=== PATIENT | male | born 1990 | race Caucasian/White ===

== ENCOUNTER 2023-02-06 08:08 | Emergency (ER) | payer OTHER, SELFPAY ==
[2023-02-06 08:22] VITALS: BP 123/81; PULSE 87; RESP 16; TEMP 36.7; O2SAT 99
--- NOTE | 2023-02-06 08:31 | ED.MALEGU ---
HPI - Male Genitourinary General Chief complaint: Urogenital-Male Stated complaint: Pain Groin Area Time Seen by Provider: 02/06/23 08:31 Source: patient Mode of arrival: ambulatory Limitations: no limitations History of Present Illness HPI Narrative: 32-year-old male presents with complaint of left testicular pain for 1 week. He also reports for the same amount of time he has had left low back pain radiating into his left lower extremity. He states at times it seems like the left low back radiates into his left lower extremity and then into left groin and left testicle. He denies swelling to left testicle. He states on palpation of his left testicle he does have tenderness. No color change. No warmth. Denies frequency, urgency, dysuria. Denies history of kidney stones. He is unsure at the left back pain and left testicle pain are related. He states left back pain is worse with movement. Afebrile. All systems reviewed and negative except as noted above. Related Data Home Medications Medication Instructions Recorded Confirmed No Home Medications 02/06/23 02/06/23 Allergies Allergy/AdvReac Type Severity Reaction Status Date / Time No Known Allergies Allergy Verified 02/06/23 08:18 Review of Systems Review of Systems: CONSTITUTIONAL: Denies fever, chills, or sweats. EYES: Denies visual changes, redness, or discharge. ENT: Denies rhinorrhea, congestion, sore throat, or otalgia. CARDIOVASCULAR: Denies chest pain, palpitations, or edema. RESPIRATORY: Denies cough or dyspnea. GASTROINTESTINAL: Denies abdominal pain, nausea, vomiting, or diarrhea. GENITOURINARY: Denies dysuria or hematuria. Reports left testicular pain. SKIN: Denies rash or itching. MUSCULOSKELETAL: Reports left-sided low back pain with radiation to left lower extremity.. Deniesjoint pain, or myalgia. NEUROLOGIC: Denies headache, numbness, or weakness. PSYCHIATRIC: Denies anxiety or depression. All other systems reviewed are negative, except as documented in HPI. 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 There is no relevant family history pertinent to the presenting complaint. Exam Narrative: GENERAL: This is a well-nourished, well-developed patient, in no apparent distress. HEAD: normocephalic, atraumatic. EYES: PERRL. Sclera clear/white. Vision is grossly intact. EARS: External ears normal NOSE: External nose normal NECK: Neck supple, non-tender without lymphadenopathy, masses or thyromegaly. CARDIOVASCULAR: Regular rate and rhythm without murmurs, gallops, or rubs. RESPIRATORY: Clear to auscultation. Breath sounds equal bilaterally. No wheezes, rales, or rhonchi. GASTROINTESTINAL: Abdomen soft, non-tender, nondistended. Bowel sounds are active. No hepato-splenomegaly, or palpable masses. No guarding. SKIN: warm, Dry, intact with no suspicious lesions or rash, good texture and turgor. NEURO: awake, alert, and oriented to person, place and time. There were no obvious focal neurologic abnormalities. EXTREMITIES: No joint tenderness, effusion, or edema noted. BACK: Nontender without deformity. No CVA tenderness. Course Course Level of Care
== END 2023-02-06 08:57 | disposition short-term general hospital (02) ==
PROVIDERS: Emergency Provider Nurse Practitioner Family; PCP Family Medicine
DX: N50.812 Left testicular pain (principal); M54.50 Low back pain, unspecified
CPT/HCPCS: 81003; 99212; G0463

== ENCOUNTER 2023-02-06 09:14 | Emergency (ER) | payer OTHER, SELFPAY ==
--- NOTE | ~2023-02-06 | US_ITS ---
EXAMINATION: US scrotum doppler DATE: 02/06/2023 09:54 INDICATION: Left testicular pain. TECHNIQUE: Grayscale and Doppler ultrasound images of the testes were obtained. COMPARISON: None. FINDINGS: The right testis measures 4.5 x 2.8 x 3.3 cm. The left testis measures 4.7 x 2.6 x 3.1 cm. There is normal vascular flow to both testes. The right epididymis is normal with normal vascular demetrius w. The left epididymis demonstrates a 5 mm cyst. There is normal vascular flow in left epididymis. Th ere is no varicocele or hydrocele. IMPRESSION: 1. No specific etiology for the patient's symptoms. Reviewed, dictated and finalized at location A.
[2023-02-06 09:15] VITALS: BP 125/88; PULSE 87; RESP 16; TEMP 36.3; O2SAT 100
[2023-02-06 09:44] LABS: Appearance Urine Clear (Clear); Bilirubin Urine Negative (Negative); Blood Urine Negative (Negative); Color Urine Yellow (Yellow); Glucose Urine UA Negative (Negative); Ketones Urine Negative (Negative); Leukocyte Esterase Ur Negative LEU/UL (Negative); Nitrate Urine Negative (Negative); Protein Urine Negative (Negative); Specific Grav Ur 1.004 (1.001-1.035); Urobilinogen Urine 0.2 mg/dL (<2.0)
--- NOTE | 2023-02-06 09:47 | ED.MALEGU ---
HPI - Male Genitourinary General Chief complaint: Urogenital-Male Stated complaint: groin pain Time Seen by Provider: 02/06/23 09:28 History of Present Illness HPI Narrative: Patient sent here from urgent care with 1 week of feeling of fullness and discomfort to his left testicle, he also has some dull pain to his left lower back/hip, no abdominal pain, dysuria, has never had symptoms like this in the past, he is monogamous with his and has no concerns for STDs. Related Data Home Medications Medication Instructions Recorded Confirmed No Home Medications 02/06/23 02/06/23 Allergies Allergy/AdvReac Type Severity Reaction Status Date / Time No Known Allergies Allergy Verified 02/06/23 09:26 Review of Systems Review of Systems: CONST: No fever. HEENT: No sore throat C/V: No chest pain RESP: No cough GI: No abdominal pain, nausea or vomiting : Left testicular pain and slight swelling M/S: No joint pain. SKIN: No rash. 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 EYES: EOMI, conjunctiva normal ENT: Hearing grossly intact LUNGS: Nonlabored breathing. HEART: [Regular rate and rhythm] ABD: [Soft], [nontender to palpation] BACK: No CVA tenderness : Very minimal swelling/tenderness to left testicle, not high riding, cremasteric reflex intact EXT: Normal range of motion SKIN: [No rashes or lesions.] NEURO: [Alert and oriented x 3. No gross focal sensory or strength deficits.] PSYCH: Normal affect Course Vital Signs Vital signs: Vital Signs Temperature 97.3 F L 02/06/23 09:15 Pulse Rate 87 02/06/23 09:15 Respiratory Rate 16 02/06/23 09:15 Blood Pressure 125/88 02/06/23 09:15 Pulse Oximetry 100 02/06/23 09:15 Temperature 97.3 F L 02/06/23 09:15 Pulse Rate 87 02/06/23 09:15 Respiratory Rate 16 02/06/23 09:15 Blood Pressure 125/88 02/06/23 09:15 Pulse Oximetry 100 02/06/23 09:15 MDM - Male Genitourinary MDM Narrative Medical decision making narrative: 32-year-old male presenting with 1 week of left testicular pain, he also has some mild pain to his left hip/lower back, which is monogamous with his , he does he thinks may have been the way he slept on it. No dysuria or urethritis, reports that they have had difficulty conceiving which is why they have adopted. Urinalysis is within acceptable limits, scrotal ultrasound here shows a small cyst to the left testicle but no obvious cause of his symptoms. Patient agreeable to outpatient follow-up and management with the urologist, I have asked him to return if his back pain does not resolve as we may want to obtain a CT at that point for further evaluation to rule out other diagnoses such as kidney stones, malignancy, however I have very low concern for this without significant pain or any B symptoms and he is otherwise well-appearing without other issues. Lab Data Labs: Lab Results 02/06/23 Range/Units 09:31 Urine Color Yellow (Yellow) Urine Appearance
[2023-02-06 09:51] LABS: Add Urine Microscopic? NO
== END 2023-02-06 10:24 | disposition home or self-care (01) ==
PROVIDERS: Emergency Provider Emergency Medicine; PCP Family Medicine
DX: N50.812 Left testicular pain (principal)
CPT/HCPCS: 76870; 81003; 93976; 99284

== ENCOUNTER 2023-12-07 14:20 | Emergency (ER) | payer OTHER, SELFPAY ==
--- NOTE | 2023-12-07 14:24 | ED.URI ---
HPI - URI/Sore Throat General Chief Complaint: Upper Respiratory Infection Stated Complaint: sore throat Time Seen by Provider: 12/07/23 14:45 Source: patient Mode of arrival: ambulatory Limitations: no limitations History of Present Illness HPI Narrative: Taz is a 33-year-old male patient presenting to the clinic today with complaints of sore throat for the past 2-3 days. He reports that today is been the worst of the sore throat. Has had exposure to his son tested positive on Sunday for strep. Has not taken any Tylenol or Motrin or any other [id number] medications to treat his symptoms. MD elicited complaint: sore throat Related Data Allergies Allergy/AdvReac Type Severity Reaction Status Date / Time No Known Allergies Allergy Verified 03/07/23 10:55 Review of Systems Review of Systems: Pertinent positives per HPI. Patient denies any fever, chills, rash, headache, visual changes, dizziness, cough, shortness of breath, chest pain, palpitations, nausea, vomiting, diarrhea, constipation, abdominal pain, or any urinary issues. PMFSH Past Medical History Medical History Annual physical exam Encounter for screening for malignant neoplasm of prostate Establishing care with new doctor, encounter for Surgical History Surgical History No pertinent past surgical history Family History Family History Father Hypertension Mother Hypertension Depression Grandparent Heart disease Social History Social History Smoking status: Never smoker Alcohol intake: current Alcohol use details: wine Substance use: never Lack of Transportation: No Lack of Food: Never True Current Housing: I Have Housing Concerned About Future Housing: No Difficulty Paying Gas/Electric Bills: No Difficulty Paying for Meds: No Currently Unemployed: No Education: Associate Degree Difficulty w/ Childcare or Family Care: No Living arrangements: with family Occupation/Education: occupation 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 There is no relevant family history pertinent to the patient complaint. Exam Narrative: General: Well-developed, well nourished, in no apparent distress Head: Normocephalic, atraumatic Eyes: Pupils equally round and reactive to light bilaterally, EOM intact, sclera and conjunctive clear, no discharge, lids normal Ears: TMs intact and clear, ear canals clear, no drainage, grossly hearing normal. Nose: Nares patent, no discharge, no inflammation, no sinus tenderness. Mouth: Oral pharynx without lesions or masses, good dentition, MMM. Neck: Supple, trachea midline, no enlargement of anterior or posterior cervical nodes, no thyroid masses or goiter palpable. Cardio: Regular rate and rhythm, s1 and s2 normal, no murmur appreciated. Resp: Clear to auscultation bilaterally, no rhonchi, rales, wheezing or rubs Course Course Emergency Course: Portions of this record may have been created with voice recognition software. Level of Care: Express Care Visit Vital Signs Vital signs: Vital Signs Temperature 36.7 C 12/07/23 14:37 Pulse Rate 85 12/07/23 14:37 Respiratory Rate 16 12/07/23 14:37 Blood Pressure 110/77 12/07/23 14:37 Pulse Oximetry 98 12/07/23 14:37 Oxygen Delivery Room Air 12/07/23 14:37 Temperature 36.7 C 12/07/23 14:37 Pulse Rate 85 12/07/23 14:37 Respiratory Rate 16 12/07/23 14:37 Blood Pressure 110/77 12/07/23 14:37 Pulse Oximetry 98 12/07/23 14:37 Oxygen Delivery Room Air 12/07/23 14:37
[2023-12-07 14:37] VITALS: BP 110/77; PULSE 85; RESP 16; TEMP 36.7; O2SAT 98
== END 2023-12-07 14:51 | disposition home or self-care (01) ==
PROVIDERS: Emergency Provider Nurse Practitioner Family
DX: J02.9 Acute pharyngitis, unspecified (principal)
CPT/HCPCS: 87081; 87880; 99213; G0463